=== PATIENT | female | born 1985 | race Caucasian/White ===

== ENCOUNTER 2016-12-14 07:38 | Emergency (ER) | payer BC ==
[~2016-12-14] VITALS: Ht 172.7 cm; Wt 81.6 kg
--- NOTE | 2016-12-14 08:04 | PHYS DOC ---
Adult General Chief Complaint Chief Complaint: FLANK PAIN HPI HPI Patient is a 31 female who presents with right flank pain and urinary symptoms, she believes she might have a kidney stone. She was fine yesterday and last night. She woke up at 6:00 this morning and felt that she had to urinate badly. She has urinated several times since and has not had very much doubt. She has pain in her right flank and down to the right lower back which does go across the center of her back a little and also some crampy pain over her bladder. Denies fever or chills, nausea or vomiting. Patient passed a kidney stone when she was that was the size of one half grain of rice. She has never had a CAT scan because she was at the time. She does have a family history of kidney stone in her mom. Patient has not taken anything for pain today. She has no allergies. Patient is breast-feeding. She denies . She has a Mirena. Review of Systems Review of Systems Constitutional: Denies fever or chills [] Eyes: Denies change in visual acuity, redness, or eye pain [] HENT: Denies nasal congestion or sore throat [] Respiratory: Denies cough or shortness of breath [] Cardiovascular: Denies chest pain GI: As in history of present illness : As in history of present illness Musculoskeletal: As in history of present illness Integument: Denies rash or skin lesions [] Neurologic: Denies headache, focal weakness or sensory changes [] Allergies Allergies Allergies Coded Allergies Type Severity Reaction Last Updated Verified No Known Drug Allergies 12/14/16 No Physical Exam Physical Exam Constitutional: Well developed, well nourished, appears uncomfortable, she is squatting in a position of comfort. HENT: Normocephalic, atraumatic, bilateral external ears normal, nose normal. [] Eyes: conjunctiva normal, no discharge. [] Neck: Normal range of motion, no stridor. [] Cardiovascular:Heart rate regular rhythm, no murmur [] Lungs & Thorax: Bilateral breath sounds clear to auscultation [] Abdomen: Bowel sounds normal, soft, no tenderness, no masses, no pulsatile masses. [] Skin: Warm, dry, no erythema, no rash. [] Back: No tenderness, no CVA tenderness. [] Extremities: No tenderness, no cyanosis, no clubbing, ROM intact, no edema. [] Neurologic: Alert and oriented X 3, normal motor function, normal sensory function, no focal deficits noted. [] EKG EKG [] Radiology/Procedures Radiology/Procedures CT scan of the abdomen and pelvis read by the radiologist. The patient does have a 3 mm stone at the right UVJ with hydro ureter and hydronephrosis. 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 Course & Med Decision Making Course & Med Decision Making Pertinent Labs and Imaging studies reviewed. (See chart for details) 31-year-old female with right flank pain and history of one kidney stone in the past. She did not have imaging when she passed that kidney stone because she was . Her pain is a 7 or an 8 right now. I commended some IV pain medications and a CT scan, she is agreeable to that. She is currently breast- feeding so I advised her any medication we give her we will be in her breast milk but we will give her medications safe for the baby, with her pain being a 7 or 8 until we should treat her pain and she is agreeable to that. She is breast-feeding a toddler, not an . Labs are unremarkable. CT scan does show a stone at the right UVJ with hydronephrosis and hydroureter. It is 3 mm in size and I believe will likely pass. Also a right ovarian cyst that I believe is incidental, I do not believe that is causing the patient's symptoms. Discussed the findings with her including the finding of a horse shoe kidney and left nonobstructing stones. We talked about symptomatic treatment of her right kidney stone. She is breast- feeding a [id number]. For that reason we will hold off on Flomax. I did advise ibuprofen 600 mg every 6 hours and prescribed [place] as needed for additional pain control. She was discharged with a strainer and phone number for urology. Also advised her to follow up with PATIENT SERVICES REPRESENTATIVE for the ovarian cyst. [] Dragon Disclaimer Dragon Disclaimer This chart was dictated in whole or in part using Voice Recognition software in a busy, high-work load, and often noisy Emergency Department environment. It may contain unintended and wholly unrecognized errors or omissions. Departure Departure: Impression: Primary Impression: Renal colic on right side Additional Impression: Ovarian cyst Disposition: HOME, SELF-CARE Condition: IMPROVED Referrals: PCP,UNKNOWN (PCP) SHERYL COYLE MD Patient Instructions: Kidney Stones, [id number], Ovarian Cyst, [id number] Additional Instructions: You do have a kidney stone that is causing your pain, it appears that it is almost ready to pass. Sometimes, stones can get hung up in this spot for a while though. Strain your urine to see when it passes. Plenty of fluids. Ibuprofen 600 mg every 6-8 hours. If stronger pain medicine as needed, I prescribed hydrocodone. Use sparingly, it will get into your breast milk. It is safe for the baby that it is an opiate and we would rather have it be used sparingly. You do have a stone on the left side as well. Also noted on your CT scan was an ovarian cyst. See your PATIENT SERVICES REPRESENTATIVE doctor, take the CT scan report with you. You should also see a urologist, ask your PATIENT SERVICES REPRESENTATIVE doctor for a referral. Scripts Hydrocodone Bit/Acetaminophen ([place] 5-325 Tablet)1 Each Tablet1-2 Tab PO Q4- 6HRS #20 TAB As needed for severe pain This is an opiate Okay to combine with ibuprofen Prov:LOYD MOLINA MD 12/14/16 Problem Qualifiers LOYD MOLINA MD Dec 14, 2016 08:04
[2016-12-14] MEDS: MORPHINE SULFATE 4 MG/ML DISP.SYRIN. IV/SQ PRN ×2 (08:16→09:01)
[2016-12-14 08:24] LABS: HEMATOCRIT 40.3 % (36.0-47.0); HEMOGLOBIN 13.6 g/dL (12.0-15.5); MEAN CORPUSCULAR HEMOGLOBIN 29 pg (25-35); MEAN CORPUSCULAR VOLUME 88 fL (79-100); RED BLOOD COUNT 4.61 x10^6/uL (3.50-5.40); WHITE BLOOD COUNT 8.5 x10^3/uL (4.0-11.0)
[2016-12-14 08:25] LABS: BASO # 0.1 x10^3/uL (0.0-0.2); BASO % 1 % (0-3); EOS # 0.1 x10^3/uL (0.0-0.7); EOS % 1 % (0-3); LYMPH # 2.3 x10^3/uL (1.0-4.8); LYMPH % 27 % (24-48); MEAN CORPUSCULAR HGB CONC 34 g/dL (31-37); MONO # 0.4 x10^3/uL (0.0-1.1); MONO % 5 % (0-9); NEUT # 5.7 x10^3uL (1.8-7.7); NEUT % 67 % (31-73); PLATELET COUNT 257 x10^3/uL (140-400); RED CELL DISTRIBUTION WIDTH 12.9 % (11.5-14.5)
[2016-12-14 08:35] LABS: ALBUMIN 3.9 g/dL (3.4-5.0); CALCIUM 8.8 mg/dL (8.5-10.1); TOTAL PROTEIN 7.8 g/dL (6.4-8.2)
[2016-12-14 08:36] LABS: CREATININE 0.9 mg/dL (0.6-1.0); GFR 72.6; TOTAL BILIRUBIN 0.6 mg/dL (0.2-1.0)
[2016-12-14 08:39] LABS: BILIRUBIN,URINE NEG (NEG); CLARITY,URINE CLEAR; COLOR,URINE STRAW; GLUCOSE,URINE NEG (NEG)
[2016-12-14 08:40] LABS: BACTERIA,URINE FEW /HPF (0-FEW); NITRITE,URINE NEG (NEG); RBC,URINE RARE /HPF (0-2); SQUAMOUS EPITHELIAL CELL,UR OCC /LPF; UROBILINOGEN,URINE 0.2 mg/dL (0.2 mg/dL); WBC,URINE RARE /HPF (0-4)
[2016-12-14] MEDS ORDERED: ONDANSETRON PF 4 MG/2 ML VIAL. IV ONE (08:40)
--- NOTE | 2016-12-14 08:45 | RAD ---
CT study of the abdomen and pelvis without contrast History: Right flank pain over the past 24 hours. History of kidney stones. Technique: Noncontrast helical CT scanning of the abdomen and pelvis was performed. Without contrast, the sensitivity to detect organ pathology and GI tract pathology is decreased. PQRS Compliance Statement: One or more of the following individualized dose reduction techniques were utilized for this examination: 1. Automated exposure control 2. Adjustment of the mA and/or kV according to patient size 3. Use of iterative reconstruction technique Findings: The liver and spleen and pancreas are homogeneous in appearance on this noncontrast study. The gallbladder is normal and no extra hepatic biliary ductal dilatation is seen. No adrenal mass is evident. A horseshoe kidney is seen. There is moderate hydronephrosis and hydroureter of the right moiety due to a distal right ureteral stone measuring 3 mm in size located at the UVJ. Nonobstructing stones of the left moiety are seen. The urinary bladder is not distended. IUD is seen in proper position within the central aspect of the uterus. There is a 6.3 cm right adnexal cystic lesion most likely representing a right ovarian cyst. No obstructive bowel pattern is seen. The appendix is normal. No free fluid or free air is seen. No focal aneurysmal dilatation of the abdominal aorta is seen. No enlarged abdominal or pelvic lymphadenopathy is seen. No osteolytic process is seen. No lung base consolidation is seen. IMPRESSION: Horseshoe kidney. Moderate right-sided hydronephrosis and hydroureter due to a distal right ureteral stone measuring 3 mm in size located at the UVJ. 6.3 cm cystic right adnexal lesion most likely representing a right ovarian cyst. Recommend correlation with a test to exclude an ectopic . No free fluid or inflammatory change is seen here.
[2016-12-14] MEDS ORDERED: HYDR-971 PO (09:05)
[2016-12-14 09:40] VITALS: BP 133/89
== END 2016-12-14 09:35 | disposition home or self-care (01) ==
LOC: ER 07:38
DX: N23 Unspecified renal colic (principal); N83.201 Unspecified ovarian cyst, right side; Z87.442 Personal history of urinary calculi
CPT/HCPCS: 36415; 74176; 80053; 81001; 81025; 85027; 96374; 96375; 96376; 99285; J2270; J2405

== ENCOUNTER → 2020-09-29 | Outpatient (CLI) | payer BC ==
[~2020-09-29] MED LIST: HYDR-3165 PO
--- NOTE | 2020-09-29 18:52 | RAD ---
PROCEDURE: XR ABDOMEN 1V STUDY DATE: 09/29/2020 CLINICAL INDICATION / HISTORY: Reason: CHRONIC KIDNEY STONES, FLANK PAIN / Spl. Instructions: / Hist ory: . TECHNIQUE: Single AP image of the abdomen was obtained. COMPARISON: None FINDINGS: The lung bases are clear. A nonobstructive bowel gas pattern is present. No organomegaly or pathologic calcifications are identified. No acute osseous abnormality. IMPRESSION: No acute abdominal process. Electronically signed by: Sofia Dee MD (09/29/2020 6:50 PM) [id number]
== END ==
LOC: RAD 15:29
PROVIDERS: ATTEND Specialist
DX: N20.0 Calculus of kidney (principal)
CPT/HCPCS: 74018

== ENCOUNTER 2021-03-09 10:07 | Emergency (ER) | payer OTHER, BC ==
[~2021-03-09] VITALS: Ht 170.2 cm; Wt 75.0 kg
--- NOTE | 2021-03-09 10:51 | PHYS DOC ---
Past History Past Medical History: Other Additional Past Medical Histor: kidney stones Past Surgical History: No Surgical History, Other Additional Past Surgical Histo: lithrotripsy Alcohol Use: Rarely Drug Use: None General Adult EDM: Chief Complaint: HIP PAIN HPI: HPI: 35-year-old female coming in for anterior right hip pain. Patient states that she has been having a flareup of her right hip pain for the past 4 to 5 days. Says when she was rolling over in bed she felt a "pop" and feels like her hip is dislocated. Patient is able to ambulate with pain. Pain is increased by external rotation, not worse with palpation. Denies any injury. Currently is on a 6 day/week exercise regimen. Review of Systems: Review of Systems: All other systems within normal limits except for as noted in the HPI Allergies: Allergies: Allergies Coded Allergies Type Severity Reaction Last Updated Verified No Known Drug Allergies 12/14/16 No Physical Exam: PE: Constitutional: Well developed, well nourished, no acute distress, non-toxic appearance. [] HENT: Normocephalic, atraumatic, bilateral external ears normal, nose normal. [] Eyes: PERRLA, conjunctiva normal, no discharge. [] Neck: No rigidity, supple, no stridor. [] Cardiovascular: Regular rate and rhythm, brisk cap refill [] Lungs & Thorax: Non labored symmetric respirations, no tachypnea or respiratory distress [] Abdomen: Soft, nondistended. Skin: Warm, dry, no erythema, no rash. [] Back: Unremarkable Extremities: No deformities, range of motion grossly intact, no lower extremity edema. Tenderness near insertion of rectus femoris, range of motion intact, no deformity or crepitus, no tenderness over greater trochanter or pubic symphysis. [] Neurologic: Alert and oriented X 3, no focal deficits noted. [] Psychologic: Affect normal, judgement normal, mood normal. [] Current Patient Data: Vital Signs: Vital Signs Date Time Temp Pulse Resp B/P (MAP) Pulse Ox O2 Delivery O2 Flow Rate FiO2 03/09/21 10:21 98.2 83 18 98/54 100 Room Air EKG: EKG: [] Radiology/Procedures: Radiology/Procedures: [address] [address] IMAGING REPORT Signed PATIENT: EBER LIN ACCOUNT: [id number] : 1985 LOCATION: ER AGE: 35 SEX: F EXAM STATUS: REG ER ORD. PHYSICIAN: FRANCES CORONADO MD REASON: anterior hip pain, no injury PROCEDURE: HIP RIGHT 2V WITH PELVIS XR BILATERAL HIP (WITH OR WITHOUT PELVIS) 2 VIEWS_RIGHT History: Reason: anterior hip pain, no injury / Spl. Instructions: / History: Technique: AP view the pelvis and 2 additional views of the right hip. Comparison: September 29, 2020 Findings: Normal alignment. No fracture. IUD projecting over the pelvis. Metallic density projecting over the right lower abdomen likely external to the patient. Impression: 1. No acute osseous abnormality. Electronically signed by: Helder Keys DO (03/09/2021 11:34 AM) [id number] DICTATED AND SIGNED BY: HELDER KEYS DO DATE: 03/09/21 1130 CC: FRANCES CORONADO MD; VIRAL MARK MD ~MTH0 0 [] Heart Score: C/O Chest Pain: No Risk Factors: Risk Factors: DM, Current or recent (<one month) smoker, HTN, HLP, family history of CAD, obesity. Risk Scores: Score 0 - 3: 2.5% MACE over next 6 weeks - Discharge Home Score 4 - 6: 20.3% MACE over next 6 weeks - Admit for Clinical Observation Score 7 - 10: 72.7% MACE over next 6 weeks - Early Invasive Strategies Course & Med Decision Making: Course & Med Decision Making Pertinent Labs and Imaging studies reviewed. (See chart for details) [] Dragon Disclaimer: Dragon Disclaimer: This electronic medical record was generated, in whole or in part, using a voice recognition dictation system. Departure Departure: Impression: Primary Impression: Right hip pain Disposition: HOME / SELF CARE / HOMELESS Condition: STABLE Referrals: VIRAL MARK MD (PCP) Patient Instructions: RICE - Routine Care for Injuries Additional Instructions: Use ice, Tylenol and ibuprofen as needed for pain. Follow-up with your primary care provider if symptoms do not resolve in the next week for possible MRI versus physical therapy referral FRANCES CROONADO MD Mar 09, 2021 10:51
--- NOTE | 2021-03-09 11:36 | RAD ---
XR BILATERAL HIP (WITH OR WITHOUT PELVIS) 2 VIEWS_RIGHT History: Reason: anterior hip pain, no injury / Spl. Instructions: / History: Technique: AP view the pelvis and 2 additional views of the right hip. Comparison: September 29, 2020 Findings: Normal alignment. No fracture. IUD projecting over the pelvis. Metallic density projecting over the right lower abdomen likely external to the patient. Impression: 1. No acute osseous abnormality. Electronically signed by: Helder Keys DO (03/09/2021 11:34 AM) [id number]
[2021-03-09 12:18] VITALS: BP 104/71
== END 2021-03-09 12:27 | disposition home or self-care (01) ==
LOC: ER 10:07
DX: M25.551 Pain in right hip (principal); Z87.442 Personal history of urinary calculi
CPT/HCPCS: 73502; 99283